=== PATIENT | male | born 1990 | race Caucasian/White ===

== ENCOUNTER 2016-09-14 12:10 | Emergency (ER) | payer SELFPAY ==
[2016-09-14] MEDS ORDERED: Ibuprofen TAB* 800 MG PO ONE (13:34)
[2016-09-14 13:44] VITALS: BP 140/82
[2016-09-14] MEDS ORDERED: Morphine INJ* 4 MG/ML 1 ML CARPUJECT IV ONE ×2 (15:59→17:05)
[2016-09-14] MEDS ORDERED: Ondansetron INJ* 2 MG/ML VIAL IV ONE (16:11)
[2016-09-14 16:31] LABS: Hematocrit 40 % (42-52); Hemoglobin 13.7 g/dl (14.0-18.0); Mean Corpuscular HGB Conc 34 g/dl (31-36); Mean Corpuscular Hemoglobin 31 pg (27-31); Mean Corpuscular Volume 90 fL (80-94); Mean Platelet Volume 9 um3 (7.4-10.4); Red Blood Count 4.46 10^6/ul (4.0-5.4); Red Cell Distribution Width 14 % (10.5-15)
[2016-09-14 16:36] LABS: Add Diff/Slide Review? Slide Review Added; Comments Flag Yes
[2016-09-14 16:48] LABS: Calcium 8.8 mg/dL (8.6-10.3); EGFR African American 144.9 (>60); EGFR Non-African American 112.7 (>60); Globulin 3.4 g/dL (2-4); Potassium 3.5 mmol/L (3.5-5.0); Total Bilirubin 0.5 mg/dL (0.2-1.0); Total Protein 7.4 g/dL (6.4-8.9)
[2016-09-14] MEDS ORDERED: Iohexol 300* (CONTRAST) 10 ML SDV IV ONE (16:52)
--- NOTE | 2016-09-14 17:06 | ED ---
Throat Pain/Nasal Congestion - HPI Summary HPI Summary: 25 M presents with right sided facial swelling since this morning. He woke up with swelling to his jaw. He said that he did have a pimple he popped a couple days ago on his jaw. He said he might have had pus come out of his jaw today. He denies any sore throat, difficulty swallowing, chest pain, or SOB. He did not have any previous dental pain until after the swelling started and now is lower teeth hurt. He denies taking any medication. 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 <Kalpana Paz - Last Filed: 09/14/16 18:14> <Carlos Alcantara - Last Filed: 09/14/16 19:38> - History of Current Complaint Chief Complaint: EDGeneral Time Seen by Provider: 09/14/16 15:26 - Allergies/Home Medications Allergies/Adverse Reactions: Allergies Allergy/AdvReac Type Severity Reaction Status Date / Time No Known Allergies Allergy Verified 09/14/16 12:35 PMH/Surg Hx/FS Hx/Imm Hx Endocrine/Hematology History: Denies: Hx Diabetes Cardiovascular History: Denies: Hx Hypertension - Surgical History Surgery Procedure, Year, and Place: SHOULDER Infectious Disease History: No Infectious Disease History: Denies: Traveled Outside the [place] in Last 30 Days - Family History Known Family History: Positive: Hypertension - Social History Alcohol Use: None Substance Use Type: Reports: None Smoking Status (MU): Light Every Day Tobacco Smoker <Kalpana Paz - Last Filed: 09/14/16 18:14> Review of Systems Negative: Fever Positive: Dental Pain - lower tooth pain, Other - right sided facial pain Negative: Chest Pain Negative: Shortness Of Breath All Other Systems Reviewed And Are Negative: Yes <Kalpana Paz - Last Filed: 09/14/16 18:14> Physical Exam Triage Information Reviewed: Yes Vital Signs On Initial Exam: Initial Vitals Temp Pulse Resp BP Pulse Ox 100.1 F 121 20 145/85 100 09/14/16 12:10 09/14/16 12:10 09/14/16 12:10 09/14/16 12:10 09/14/16 12:10 Vital Signs Reviewed: Yes Appearance: Positive: Pain Distress Skin: Positive: Other - area of induration noted on chin Eyes: Positive: Normal, EOMI, JENN, Conjunctiva Clear ENT: Positive: Pharynx normal, TMs normal, Trismus, Dental tenderness - of right lower tetth, Other - edema present from chin to right side of lip possible area. Negative: Muffled/hoarse voice Neck: Positive: Supple, Nontender, No Lymphadenopathy Respiratory/Lung Sounds: Positive: Clear to Auscultation, Breath Sounds Present Cardiovascular: Positive: Normal, RRR - Ward Coma Scale Coma Scale Total: 15 <Kalpana Paz - Last Filed: 09/14/16 18:14> Vital Signs On Initial Exam: Initial Vitals Temp Pulse Resp BP Pulse Ox 100.1 F 121 20 145/85 100 09/14/16 12:10 09/14/16 12:10 09/14/16 12:10 09/14/16 12:10 09/14/16 12:10 <Carlos Alcantara - Last Filed: 09/14/16 19:38> Diagnostics - Vital Signs Vital Signs Temp Pulse Resp BP Pulse Ox 09/14/16 16:12 20 09/14/16 13:30 100.0 F 114 20 140/82 98 09/14/16 12:10 100.1 F 121 20 145/85 100 - Laboratory Lab Results: Lab Results 09/14/16 09/14/16 09/14/16 Range/Units 15:45 15:45 15:45 WBC 12.0 H (3.5-10.8) 10^3/ul RBC 4.46 (4.0-5.4) 10^6/ul Hgb 13.7 L (14.0-18.0) g/dl Hct 40 L (42-52) % MCV 90 (80-94) fL MCH 31 (27-31) pg MCHC 34 (31-36) g/dl RDW 14 (10.5-15) % Plt Count 211 (150-450) 10^3/ul MPV 9 (7.4-10.4) um3 Neut % (Auto) 67.8 (38-83) % Lymph % (Auto) 17.5 L (25-47) % Atlantic % (Auto) 14.0 H (1-9) % Eos % (Auto) 0.4 (0-6) % Baso % (Auto) 0.3 (0-2) % Absolute Neuts (auto) 8.1 H (1.5-7.7) 10^3/ul Absolute Lymphs (auto) 2.1 (1.0-4.8) 10^3/ul Absolute Monos (auto) 1.7 H (0-0.8) 10^3/ul Absolute Eos (auto) 0.1 (0-0.6) 10^3/ul Absolute Basos (auto) 0 (0-0.2) 10^3/ul Absolute Nucleated RBC 0.01 10^3/ul Nucleated RBC % 0.1 Sodium 137 (133-145) mmol/L Potassium 3.5 (3.5-5.0) mmol/L Chloride 100 L (101-111) mmol/L Carbon Dioxide 32 (22-32) mmol/L Anion Gap 5 (2-11) mmol/L BUN 9 (6-24) mg/dL Creatinine 0.82 (0.67-1.17) mg/dL Est GFR ( Amer) 144.9 (>60) Est GFR (Non-Af Amer) 112.7 (>60) BUN/Creatinine Ratio 11.0 (8-20) Glucose 70 (70-100) mg/dL Lactic Acid 0.9 (0.5-2.0) mmol/L Calcium 8.8 (8.6-10.3) mg/dL Total Bilirubin 0.50 (0.2-1.0) mg/dL AST 17 (13-39) U/L ALT 22 (7-52) U/L Alkaline Phosphatase 91 (34-104) U/L C-React Prot High Sens 8.30 mg/L Total Protein 7.4 (6.4-8.9) g/dL Albumin 4.0 (3.2-5.2) g/dL Globulin 3.4 (2-4) g/dL Albumin/Globulin Ratio 1.2 (1-3) Result Diagrams: 09/14/16 15:45 09/14/16 15:45 Lab Statement: Any lab studies that have been ordered have been reviewed, and results considered in the medical decision making process. - CT maxillaryfacial CT Interpretation: Positive (See Comments) - IMPRESSION: 1. SOFT TISSUE SWELLING ADJACENT TO THE MANDIBLE ON THE RIGHT SIDE SUGGESTIVE OF CELLULITIS. NO EVIDENCE FOR ABSCESS. 2. SINUSITIS DESCRIBED. CT Interpretation Completed By: Radiologist <Kalpana Paz - Last Filed: 09/14/16 18:14> - Vital Signs Vital Signs Temp Pulse Resp BP Pulse Ox 09/14/16 17:27 20 09/14/16 16:12 20 09/14/16 13:30 100.0 F 114 20 140/82 98 09/14/16 12:10 100.1 F 121 20 145/85 100 - Laboratory Lab Results: Lab Results 09/14/16 09/14/16 09/14/16 Range/Units 15:45 15:45 15:45 WBC 12.0 H (3.5-10.8) 10^3/ul RBC 4.46 (4.0-5.4) 10^6/ul Hgb 13.7 L (14.0-18.0) g/dl Hct 40 L (42-52) % MCV 90 (80-94) fL MCH 31 (27-31) pg MCHC 34 (31-36) g/dl RDW 14 (10.5-15) % Plt Count 211 (150-450) 10^3/ul MPV 9 (7.4-10.4) um3 Neut % (Auto) 67.8 (38-83) % Lymph % (Auto) 17.5 L (25-47) % Atlantic % (Auto) 14.0 H (1-9) % Eos % (Auto) 0.4 (0-6) % Baso % (Auto) 0.3 (0-2) % Absolute Neuts (auto) 8.1 H (1.5-7.7) 10^3/ul Absolute Lymphs (auto) 2.1 (1.0-4.8) 10^3/ul Absolute Monos (auto) 1.7 H (0-0.8) 10^3/ul Absolute Eos (auto) 0.1 (0-0.6) 10^3/ul Absolute Basos (auto) 0 (0-0.2) 10^3/ul Absolute Nucleated RBC 0.01 10^3/ul Nucleated RBC % 0.1 Sodium 137 (133-145) mmol/L Potassium 3.5 (3.5-5.0) mmol/L Chloride 100 L (101-111) mmol/L Carbon Dioxide 32 (22-32) mmol/L Anion Gap 5 (2-11) mmol/L BUN 9 (6-24) mg/dL Creatinine 0.82 (0.67-1.17) mg/dL Est GFR ( Amer) 144.9 (>60) Est GFR (Non-Af Amer) 112.7 (>60) BUN/Creatinine Ratio 11.0 (8-20) Glucose 70 (70-100) mg/dL Lactic Acid 0.9 (0.5-2.0) mmol/L Calcium 8.8 (8.6-10.3) mg/dL Total Bilirubin 0.50 (0.2-1.0) mg/dL AST 17 (13-39) U/L ALT 22 (7-52) U/L Alkaline Phosphatase 91 (34-104) U/L C-React Prot High Sens 8.30 mg/L Total Protein 7.4 (6.4-8.9) g/dL Albumin 4.0 (3.2-5.2) g/dL Globulin 3.4 (2-4) g/dL Albumin/Globulin Ratio 1.2 (1-3) Result Diagrams: 09/14/16 15:45 09/14/16 15:45 Lab Statement: Any lab studies that have been ordered have been reviewed, and results considered in the medical decision making process. <Carlos Alcantara - Last Filed: 09/14/16 19:38> EENT Course/Dx - Course Course Of Treatment: 25 M presents with right sided facial edema that started today. denies any trauma to area. denies any fever, previous dental pain until today or sore throat, denies any SOB or chest pain or difficulty swallowing, has not eaten anything new, area of edema present on chin and into lip, no dental abscess noted, will CT: showed cellutitis, gave IV clindamycin due to history of MRSA, will have follow up with primary and continue clindamycin outpatient, warned of signs to return to ED for, patient agrees with plan - Differential Diagnoses Differential Diagnoses: Cellulitis, Dental Abscess, Other - abscess, angioeedema <Kalpana Paz - Last Filed: 09/14/16 18:14> - Course Assessment/Plan: I was available for consultation. This patient was seen by mid level provider. The patient was not presented, seen, or examined by me. WR. <Carlos Alcantara - Last Filed: 09/14/16 19:38> - Diagnoses Provider Diagnoses: Cellulitis of face Discharge <Kalpana Paz - Last Filed: 09/14/16 18:14> <Carlos Alcantara - Last Filed: 09/14/16 19:38> - Discharge Plan Condition: Good Disposition: HOME Prescriptions: Clindamycin CAP* [Cleocin 150 MG CAP*] 450 mg PO QID #117 cap oxyCODONE/Acetamin 5/325 MG* [Percocet 5/325 TAB*] 1 tab PO Q6H PRN #4 tab MDD 4 PRN Reason: Pain Patient Education Materials: Cellulitis (ED) Referrals: No Primary Care Phys,NOPCP [Primary Care Provider] - Additional Instructions: Take 3 tablets four times a day for 10 days Take ibuprofen every 6 hours and use narcotic for break through pain Follow up with primary as scheduled Return to ED if develop shortness of breath, difficulty swallowing, and chest pain or any new or worsening symptoms Images - Images Head: 1 - facial edema <Kalpana Paz - Last Filed: 09/14/16 18:14>
--- NOTE | 2016-09-14 17:23 | RAD ---
INDICATION: Swelling, possible facial abscess. COMPARISON: There are no prior studies available for comparison. TECHNIQUE: Contiguous axial sections of the axial images of the facial bones were obtained and reconstructed in the coronal and sagittal planes. The exam was performed following intravenous injection of 75 mL of Omnipaque 300 nonionic contrast. FINDINGS: There is soft tissue swelling and fluid tracking adjacent to the horizontal ramus of the mandible on the right side and mandibular symphysis. No focal fluid collection or abscess is seen. There is a slightly prominent submandibular lymph node measuring 0.8 cm in transverse dimension. The parotid and submandibular glands appear to be within normal limits. There is moderate to severe circumferential mucosal thickening within the right maxillary sinus and near complete opacification of the left maxillary sinus. There is opacification of multiple bilateral ethmoid air cells. There is mild mucosal thickening within the frontal sinus on the right side. The sphenoid sinus appears clear. There is mucosal plugging around both ostiomeatal complexes. The mastoid air cells appear clear. There is moderate to severe deviation of the nasal septum toward the right side. There is a small bony spur pointing into the right nasal passageway. The nasal passageways are otherwise clear. IMPRESSION: 1. SOFT TISSUE SWELLING ADJACENT TO THE MANDIBLE ON THE RIGHT SIDE SUGGESTIVE OF CELLULITIS. NO EVIDENCE FOR ABSCESS. 2. SINUSITIS DESCRIBED.
[2016-09-14] MEDS ORDERED: Clindamycin 600 MG IVPREMIX(* 600 MG/50 ML SDV IV ONE (17:30)
== END 2016-09-14 18:16 | disposition home or self-care (01) ==
LOC: ED 12:10
DX: L03.211 Cellulitis of face (principal); K04.7 Periapical abscess without sinus; R22.0 Localized swelling, mass and lump, head
CPT/HCPCS: 36415; 70487; 80053; 83605; 85025; 86141; 96374; 96375; 99283; A9270-GY; J2270; J2405; Q9967